=== PATIENT | male | born 1990 | race Caucasian/White ===

== ENCOUNTER → 2016-06-18 | Outpatient (CLI) | payer OTHER ==
--- NOTE | 2016-06-18 11:27 | DI ---
Indication: ITS.REASON: DIAGNOSTIC TESTING, lost curvature in the spine for two years Procedure: CERVICAL SPINE 4 OR 5 VIEWS: Encounter: Initial Comparison: None Technique: Five views of the cervical spine were obtained. Findings: Bony mineralization is normal. Normal cervical lordosis is maintained. Vertebral bodies maintain normal height and alignment without evidence of acute fracture or malalignment. Intervertebral disc spaces are maintained. The lateral masses of C1 and C2 are normally aligned. The neural foramen appear widely patent. The visualized airway appears widely patent. Visualized lung apices are clear. Impression: Normal cervical spine radiographs. .
== END ==
LOC: IMA 10:49
DX: Z02.9 Encounter for administrative examinations, unspecified (principal)